=== PATIENT | female | born 1965 | race Caucasian/White ===

== ENCOUNTER 2018-01-24 07:59 | Day surgery (SDC) | payer OTHER ==
[~2018-01-24 07:59] MED LIST: CYCL10 PO; GLIP10ER PO; IBUP800 PO; JANUMET XR 1001 EACH PO; Norco 5-325 Ta1 EACH PO; ZESTORETIC 20-251 EA
== END 2018-01-24 23:02 | disposition home or self-care (01) ==
LOC: WOUND 07:59
DX: L97.222 Non-pressure chronic ulcer of left calf with fat layer exposed (principal); E11.65 Type 2 diabetes mellitus with hyperglycemia; I10 Essential (primary) hypertension
CPT/HCPCS: 87070; 87075; 87077; 87186; 87205; G0463

== ENCOUNTER 2018-03-13 01:39 | Day surgery (SDC) | payer OTHER | END 2018-03-13 22:42 | disposition home or self-care (01) | LOC: WOUND 01:39 | DX: L97.222 Non-pressure chronic ulcer of left calf with fat layer exposed (principal); E11.65 Type 2 diabetes mellitus with hyperglycemia; I10 Essential (primary) hypertension ==

== ENCOUNTER 2018-03-27 08:00 | Day surgery (SDC) | payer OTHER | END 2018-03-27 22:39 | disposition home or self-care (01) | LOC: WOUND 08:00 | DX: L97.222 Non-pressure chronic ulcer of left calf with fat layer exposed (principal); E11.65 Type 2 diabetes mellitus with hyperglycemia; I10 Essential (primary) hypertension | CPT/HCPCS: G0463 ==

== ENCOUNTER 2018-04-03 07:50 | Day surgery (SDC) | payer OTHER | END 2018-04-03 22:42 | disposition home or self-care (01) | LOC: WOUND 07:50 | DX: L97.222 Non-pressure chronic ulcer of left calf with fat layer exposed (principal); E11.65 Type 2 diabetes mellitus with hyperglycemia; I10 Essential (primary) hypertension | CPT/HCPCS: G0463 ==

== ENCOUNTER 2018-04-10 07:54 | Day surgery (SDC) | payer OTHER | END 2018-04-10 23:09 | disposition home or self-care (01) | LOC: WOUND 07:54 | DX: L97.222 Non-pressure chronic ulcer of left calf with fat layer exposed (principal); E11.65 Type 2 diabetes mellitus with hyperglycemia; I10 Essential (primary) hypertension | CPT/HCPCS: G0463 ==

== ENCOUNTER 2018-04-17 08:00 | Day surgery (SDC) | payer OTHER | END 2018-04-17 22:48 | disposition home or self-care (01) | LOC: WOUND 08:00 | DX: Z48.00 Encounter for change or removal of nonsurgical wound dressing (principal); E11.622 Type 2 diabetes mellitus with other skin ulcer; E11.65 Type 2 diabetes mellitus with hyperglycemia; L97.222 Non-pressure chronic ulcer of left calf with fat layer exposed; I10 Essential (primary) hypertension | CPT/HCPCS: G0463 ==

== ENCOUNTER 2018-04-24 07:50 | Day surgery (SDC) | payer OTHER | END 2018-04-24 23:01 | disposition home or self-care (01) | LOC: WOUND 07:50 | DX: L97.222 Non-pressure chronic ulcer of left calf with fat layer exposed (principal); E11.65 Type 2 diabetes mellitus with hyperglycemia; I10 Essential (primary) hypertension; Z79.84 Long term (current) use of oral hypoglycemic drugs ==

== ENCOUNTER 2018-05-01 08:01 | Day surgery (SDC) | payer OTHER | END 2018-05-01 22:45 | disposition home or self-care (01) | LOC: WOUND 08:01 | DX: E11.622 Type 2 diabetes mellitus with other skin ulcer (principal); L97.222 Non-pressure chronic ulcer of left calf with fat layer exposed; E11.65 Type 2 diabetes mellitus with hyperglycemia; I10 Essential (primary) hypertension; B95.61 Methicillin susceptible Staphylococcus aureus infection as the cause of diseases classified elsewhere; B95.1 Streptococcus, group B, as the cause of diseases classified elsewhere | CPT/HCPCS: G0463 ==

== ENCOUNTER 2018-05-08 08:03 | Day surgery (SDC) | payer OTHER | END 2018-05-08 22:44 | disposition home or self-care (01) | LOC: WOUND 08:03 | DX: E11.622 Type 2 diabetes mellitus with other skin ulcer (principal); L97.222 Non-pressure chronic ulcer of left calf with fat layer exposed; E11.65 Type 2 diabetes mellitus with hyperglycemia; I10 Essential (primary) hypertension; E11.51 Type 2 diabetes mellitus with diabetic peripheral angiopathy without gangrene | CPT/HCPCS: G0463 ==

== ENCOUNTER 2018-05-15 00:25 | Day surgery (SDC) | payer OTHER | END 2018-05-15 23:02 | disposition home or self-care (01) | LOC: WOUND 00:25 | DX: E11.622 Type 2 diabetes mellitus with other skin ulcer (principal); L97.222 Non-pressure chronic ulcer of left calf with fat layer exposed; E11.65 Type 2 diabetes mellitus with hyperglycemia; I10 Essential (primary) hypertension ==

== ENCOUNTER 2018-06-05 00:25 | Day surgery (SDC) | payer OTHER | END 2018-06-05 22:53 | disposition home or self-care (01) | LOC: WOUND 00:25 | DX: L97.222 Non-pressure chronic ulcer of left calf with fat layer exposed (principal); E11.65 Type 2 diabetes mellitus with hyperglycemia; I10 Essential (primary) hypertension; Z79.84 Long term (current) use of oral hypoglycemic drugs | CPT/HCPCS: G0463 ==

== ENCOUNTER 2018-06-19 08:00 | Day surgery (SDC) | payer OTHER | END 2018-06-19 22:50 | disposition home or self-care (01) | LOC: WOUND 08:00 | DX: E11.622 Type 2 diabetes mellitus with other skin ulcer (principal); L97.222 Non-pressure chronic ulcer of left calf with fat layer exposed; E11.65 Type 2 diabetes mellitus with hyperglycemia; I10 Essential (primary) hypertension | CPT/HCPCS: G0463 ==

== ENCOUNTER 2018-07-03 00:15 | Day surgery (SDC) | payer OTHER | END 2018-07-03 22:50 | disposition home or self-care (01) | LOC: WOUND 00:15 | DX: E11.622 Type 2 diabetes mellitus with other skin ulcer (principal); L97.222 Non-pressure chronic ulcer of left calf with fat layer exposed; E11.65 Type 2 diabetes mellitus with hyperglycemia; I10 Essential (primary) hypertension | CPT/HCPCS: G0463 ==

== ENCOUNTER 2019-12-07 08:01 | Day surgery (SDC) | payer OTHER | END 2019-12-07 22:43 | disposition home or self-care (01) | LOC: WOUND 08:01 | DX: E11.622 Type 2 diabetes mellitus with other skin ulcer (principal); L97.812 Non-pressure chronic ulcer of other part of right lower leg with fat layer exposed; E11.59 Type 2 diabetes mellitus with other circulatory complications | CPT/HCPCS: G0463 ==

== ENCOUNTER 2019-12-17 01:12 | Day surgery (SDC) | payer OTHER | END 2019-12-17 23:21 | disposition home or self-care (01) | LOC: WOUND 01:12 | DX: E11.622 Type 2 diabetes mellitus with other skin ulcer (principal); L97.812 Non-pressure chronic ulcer of other part of right lower leg with fat layer exposed; E11.59 Type 2 diabetes mellitus with other circulatory complications ==

== ENCOUNTER 2019-12-21 00:48 | Day surgery (SDC) | payer OTHER | END 2019-12-21 12:00 | disposition home or self-care (01) | LOC: WOUND 00:48 | DX: E11.622 Type 2 diabetes mellitus with other skin ulcer (principal); E11.59 Type 2 diabetes mellitus with other circulatory complications; L97.815 Non-pressure chronic ulcer of other part of right lower leg with muscle involvement without evidence of necrosis; Z79.84 Long term (current) use of oral hypoglycemic drugs ==

== ENCOUNTER 2019-12-24 00:15 | Day surgery (SDC) | payer OTHER | END 2019-12-24 22:54 | disposition home or self-care (01) | LOC: WOUND 00:15 | DX: E11.622 Type 2 diabetes mellitus with other skin ulcer (principal); E11.59 Type 2 diabetes mellitus with other circulatory complications; L97.825 Non-pressure chronic ulcer of other part of left lower leg with muscle involvement without evidence of necrosis; Z79.84 Long term (current) use of oral hypoglycemic drugs | CPT/HCPCS: 87071; 87077; 87147; 87186; 87205 ==

== ENCOUNTER 2019-12-28 00:34 | Day surgery (SDC) | payer OTHER | END 2019-12-28 23:05 | disposition home or self-care (01) | LOC: WOUND 00:34 | DX: E11.622 Type 2 diabetes mellitus with other skin ulcer (principal); E11.59 Type 2 diabetes mellitus with other circulatory complications; L97.815 Non-pressure chronic ulcer of other part of right lower leg with muscle involvement without evidence of necrosis; Z79.84 Long term (current) use of oral hypoglycemic drugs ==

== ENCOUNTER 2020-01-04 02:00 | Day surgery (SDC) | payer OTHER | END 2020-01-04 22:39 | disposition home or self-care (01) | LOC: WOUND 02:00 | DX: E11.622 Type 2 diabetes mellitus with other skin ulcer (principal); E11.59 Type 2 diabetes mellitus with other circulatory complications; L97.815 Non-pressure chronic ulcer of other part of right lower leg with muscle involvement without evidence of necrosis; Z79.84 Long term (current) use of oral hypoglycemic drugs ==

== ENCOUNTER 2020-01-11 02:03 | Day surgery (SDC) | payer OTHER | END 2020-01-11 22:45 | disposition home or self-care (01) | LOC: WOUND 02:03 | DX: E11.622 Type 2 diabetes mellitus with other skin ulcer (principal); L97.813 Non-pressure chronic ulcer of other part of right lower leg with necrosis of muscle; E11.52 Type 2 diabetes mellitus with diabetic peripheral angiopathy with gangrene; I96 Gangrene, not elsewhere classified; E11.59 Type 2 diabetes mellitus with other circulatory complications; J32.9 Chronic sinusitis, unspecified; D64.9 Anemia, unspecified; I10 Essential (primary) hypertension; J45.909 Unspecified asthma, uncomplicated; Z79.84 Long term (current) use of oral hypoglycemic drugs; Z79.899 Other long term (current) drug therapy; Z88.5 Allergy status to narcotic agent; Z91.040 Latex allergy status ==

== ENCOUNTER 2020-01-18 02:11 | Day surgery (SDC) | payer OTHER | END 2020-01-18 23:06 | disposition home or self-care (01) | LOC: WOUND 02:11 | DX: E11.622 Type 2 diabetes mellitus with other skin ulcer (principal); L97.813 Non-pressure chronic ulcer of other part of right lower leg with necrosis of muscle; E11.52 Type 2 diabetes mellitus with diabetic peripheral angiopathy with gangrene; I96 Gangrene, not elsewhere classified; E11.59 Type 2 diabetes mellitus with other circulatory complications; J32.9 Chronic sinusitis, unspecified; I10 Essential (primary) hypertension; D64.9 Anemia, unspecified; Z88.5 Allergy status to narcotic agent; Z79.84 Long term (current) use of oral hypoglycemic drugs; Z79.899 Other long term (current) drug therapy; J45.909 Unspecified asthma, uncomplicated; Z91.040 Latex allergy status ==

== ENCOUNTER 2020-01-24 00:19 | Day surgery (SDC) | payer OTHER | END 2020-01-24 23:19 | disposition home or self-care (01) | LOC: WOUND 00:19 | DX: E11.622 Type 2 diabetes mellitus with other skin ulcer (principal); L97.813 Non-pressure chronic ulcer of other part of right lower leg with necrosis of muscle; E11.52 Type 2 diabetes mellitus with diabetic peripheral angiopathy with gangrene; I96 Gangrene, not elsewhere classified; E11.59 Type 2 diabetes mellitus with other circulatory complications; J45.909 Unspecified asthma, uncomplicated; I10 Essential (primary) hypertension; J32.9 Chronic sinusitis, unspecified; D64.9 Anemia, unspecified; Z79.84 Long term (current) use of oral hypoglycemic drugs; Z79.899 Other long term (current) drug therapy; Z88.5 Allergy status to narcotic agent; Z91.040 Latex allergy status ==

== ENCOUNTER 2020-02-01 01:00 | Day surgery (SDC) | payer OTHER | END 2020-02-01 23:14 | disposition home or self-care (01) | LOC: WOUND 01:00 | DX: E11.622 Type 2 diabetes mellitus with other skin ulcer (principal); L97.812 Non-pressure chronic ulcer of other part of right lower leg with fat layer exposed; E11.52 Type 2 diabetes mellitus with diabetic peripheral angiopathy with gangrene; I96 Gangrene, not elsewhere classified; E11.59 Type 2 diabetes mellitus with other circulatory complications; I87.2 Venous insufficiency (chronic) (peripheral); J32.9 Chronic sinusitis, unspecified; D64.9 Anemia, unspecified; J45.909 Unspecified asthma, uncomplicated; I10 Essential (primary) hypertension; Z88.5 Allergy status to narcotic agent; Z79.84 Long term (current) use of oral hypoglycemic drugs; Z79.899 Other long term (current) drug therapy ==

== ENCOUNTER 2020-02-08 00:10 | Day surgery (SDC) | payer OTHER | END 2020-02-08 22:55 | disposition home or self-care (01) | LOC: WOUND 00:10 | DX: E11.622 Type 2 diabetes mellitus with other skin ulcer (principal); L97.813 Non-pressure chronic ulcer of other part of right lower leg with necrosis of muscle; E11.52 Type 2 diabetes mellitus with diabetic peripheral angiopathy with gangrene; E11.628 Type 2 diabetes mellitus with other skin complications; L03.115 Cellulitis of right lower limb; I96 Gangrene, not elsewhere classified; E11.59 Type 2 diabetes mellitus with other circulatory complications; J32.9 Chronic sinusitis, unspecified; D64.9 Anemia, unspecified; I10 Essential (primary) hypertension; J45.909 Unspecified asthma, uncomplicated; Z88.5 Allergy status to narcotic agent; Z91.040 Latex allergy status; Z79.84 Long term (current) use of oral hypoglycemic drugs; Z79.899 Other long term (current) drug therapy ==

== ENCOUNTER 2020-02-15 00:51 | Day surgery (SDC) | payer OTHER | END 2020-02-15 23:59 | disposition home or self-care (01) | LOC: WOUND 00:51 | DX: E11.622 Type 2 diabetes mellitus with other skin ulcer (principal); L97.812 Non-pressure chronic ulcer of other part of right lower leg with fat layer exposed; E11.628 Type 2 diabetes mellitus with other skin complications; L03.115 Cellulitis of right lower limb; E11.52 Type 2 diabetes mellitus with diabetic peripheral angiopathy with gangrene; I96 Gangrene, not elsewhere classified; E11.59 Type 2 diabetes mellitus with other circulatory complications; J32.9 Chronic sinusitis, unspecified; D64.9 Anemia, unspecified; J45.909 Unspecified asthma, uncomplicated; I10 Essential (primary) hypertension; Z88.5 Allergy status to narcotic agent; Z79.84 Long term (current) use of oral hypoglycemic drugs; Z79.899 Other long term (current) drug therapy ==

== ENCOUNTER 2020-02-25 01:35 | Day surgery (SDC) | payer OTHER | END 2020-02-25 22:51 | disposition home or self-care (01) | LOC: WOUND 01:35 | DX: E11.622 Type 2 diabetes mellitus with other skin ulcer (principal); L03.115 Cellulitis of right lower limb; L97.812 Non-pressure chronic ulcer of other part of right lower leg with fat layer exposed; E11.59 Type 2 diabetes mellitus with other circulatory complications; Z79.84 Long term (current) use of oral hypoglycemic drugs ==

== ENCOUNTER 2020-03-25 00:35 | Day surgery (SDC) | payer OTHER | END 2020-03-25 22:57 | disposition home or self-care (01) | LOC: WOUND 00:35 | DX: E11.622 Type 2 diabetes mellitus with other skin ulcer (principal); L97.813 Non-pressure chronic ulcer of other part of right lower leg with necrosis of muscle; E11.628 Type 2 diabetes mellitus with other skin complications; L03.115 Cellulitis of right lower limb; E11.52 Type 2 diabetes mellitus with diabetic peripheral angiopathy with gangrene; I96 Gangrene, not elsewhere classified; E11.59 Type 2 diabetes mellitus with other circulatory complications; D64.9 Anemia, unspecified; J45.909 Unspecified asthma, uncomplicated; I10 Essential (primary) hypertension; Z88.5 Allergy status to narcotic agent; Z91.040 Latex allergy status; Z79.84 Long term (current) use of oral hypoglycemic drugs; Z79.899 Other long term (current) drug therapy ==

== ENCOUNTER 2020-04-04 01:48 | Day surgery (SDC) | payer OTHER, SELFPAY | END 2020-04-04 23:25 | disposition home or self-care (01) | LOC: WOUND 01:48 | DX: E11.622 Type 2 diabetes mellitus with other skin ulcer (principal); L97.815 Non-pressure chronic ulcer of other part of right lower leg with muscle involvement without evidence of necrosis; E11.65 Type 2 diabetes mellitus with hyperglycemia; E11.59 Type 2 diabetes mellitus with other circulatory complications; D72.829 Elevated white blood cell count, unspecified | CPT/HCPCS: A9270 ==

== ENCOUNTER 2020-04-11 02:03 | Day surgery (SDC) | payer OTHER, SELFPAY | END 2020-04-11 23:55 | disposition home or self-care (01) | LOC: WOUND 02:03 | DX: E11.622 Type 2 diabetes mellitus with other skin ulcer (principal); L97.813 Non-pressure chronic ulcer of other part of right lower leg with necrosis of muscle; E11.52 Type 2 diabetes mellitus with diabetic peripheral angiopathy with gangrene; I96 Gangrene, not elsewhere classified; D64.9 Anemia, unspecified; J45.909 Unspecified asthma, uncomplicated; I10 Essential (primary) hypertension; E11.59 Type 2 diabetes mellitus with other circulatory complications; E11.65 Type 2 diabetes mellitus with hyperglycemia; D72.829 Elevated white blood cell count, unspecified; Z88.5 Allergy status to narcotic agent; Z79.84 Long term (current) use of oral hypoglycemic drugs; Z79.899 Other long term (current) drug therapy | CPT/HCPCS: 87070; 87075; 87077; 87186; 87205; A9270 ==

== ENCOUNTER 2020-04-18 00:32 | Day surgery (SDC) | payer OTHER, SELFPAY | END 2020-04-18 22:46 | disposition home or self-care (01) | LOC: WOUND 00:32 | DX: E11.622 Type 2 diabetes mellitus with other skin ulcer (principal); L97.812 Non-pressure chronic ulcer of other part of right lower leg with fat layer exposed; E11.65 Type 2 diabetes mellitus with hyperglycemia; E11.59 Type 2 diabetes mellitus with other circulatory complications; Z79.899 Other long term (current) drug therapy | CPT/HCPCS: A9270 ==

== ENCOUNTER 2020-04-25 00:40 | Day surgery (SDC) | payer OTHER, SELFPAY | END 2020-04-25 22:57 | disposition home or self-care (01) | LOC: WOUND 00:40 | DX: E11.622 Type 2 diabetes mellitus with other skin ulcer (principal); L97.812 Non-pressure chronic ulcer of other part of right lower leg with fat layer exposed; E11.65 Type 2 diabetes mellitus with hyperglycemia; E11.59 Type 2 diabetes mellitus with other circulatory complications | CPT/HCPCS: A9270 ==

== ENCOUNTER 2020-05-02 02:19 | Day surgery (SDC) | payer OTHER, SELFPAY | END 2020-05-02 23:45 | disposition home or self-care (01) | LOC: WOUND 02:19 | DX: E11.622 Type 2 diabetes mellitus with other skin ulcer (principal); L97.815 Non-pressure chronic ulcer of other part of right lower leg with muscle involvement without evidence of necrosis; E11.65 Type 2 diabetes mellitus with hyperglycemia; E11.59 Type 2 diabetes mellitus with other circulatory complications | CPT/HCPCS: A9270 ==

== ENCOUNTER 2020-05-16 00:52 | Day surgery (SDC) | payer OTHER, SELFPAY | END 2020-05-16 23:50 | disposition home or self-care (01) | LOC: WOUND 00:52 | DX: E11.622 Type 2 diabetes mellitus with other skin ulcer (principal); L97.815 Non-pressure chronic ulcer of other part of right lower leg with muscle involvement without evidence of necrosis; E11.65 Type 2 diabetes mellitus with hyperglycemia; E11.59 Type 2 diabetes mellitus with other circulatory complications | CPT/HCPCS: A9270 ==

== ENCOUNTER 2020-06-06 01:00 | Day surgery (SDC) | payer OTHER, SELFPAY | END 2020-06-06 23:08 | disposition home or self-care (01) | LOC: WOUND 01:00 | DX: E11.622 Type 2 diabetes mellitus with other skin ulcer (principal); L97.815 Non-pressure chronic ulcer of other part of right lower leg with muscle involvement without evidence of necrosis; L97.812 Non-pressure chronic ulcer of other part of right lower leg with fat layer exposed; E11.65 Type 2 diabetes mellitus with hyperglycemia; E11.59 Type 2 diabetes mellitus with other circulatory complications; Z86.14 Personal history of Methicillin resistant Staphylococcus aureus infection | CPT/HCPCS: A9270 ==

== ENCOUNTER 2020-06-18 00:15 | Day surgery (SDC) | payer OTHER | END 2020-06-18 22:40 | disposition home or self-care (01) | LOC: WOUND 00:15 | DX: E11.622 Type 2 diabetes mellitus with other skin ulcer (principal); L97.812 Non-pressure chronic ulcer of other part of right lower leg with fat layer exposed; E11.65 Type 2 diabetes mellitus with hyperglycemia; E11.59 Type 2 diabetes mellitus with other circulatory complications | CPT/HCPCS: A9270 ==

== ENCOUNTER 2020-07-04 00:39 | Day surgery (SDC) | payer OTHER | END 2020-07-04 22:59 | disposition home or self-care (01) | LOC: WOUND 00:39 | DX: E11.622 Type 2 diabetes mellitus with other skin ulcer (principal); L97.812 Non-pressure chronic ulcer of other part of right lower leg with fat layer exposed; E11.65 Type 2 diabetes mellitus with hyperglycemia; E11.59 Type 2 diabetes mellitus with other circulatory complications | CPT/HCPCS: A9270 ==

== ENCOUNTER 2020-07-18 00:55 | Day surgery (SDC) | payer OTHER | END 2020-07-18 23:27 | disposition home or self-care (01) | LOC: WOUND 00:55 | DX: E11.622 Type 2 diabetes mellitus with other skin ulcer (principal); L97.812 Non-pressure chronic ulcer of other part of right lower leg with fat layer exposed; E11.65 Type 2 diabetes mellitus with hyperglycemia; E11.59 Type 2 diabetes mellitus with other circulatory complications | CPT/HCPCS: A9270 ==

== ENCOUNTER 2020-08-01 02:11 | Day surgery (SDC) | payer OTHER | END 2020-08-01 23:10 | disposition home or self-care (01) | LOC: WOUND 02:11 | DX: E11.622 Type 2 diabetes mellitus with other skin ulcer (principal); L97.812 Non-pressure chronic ulcer of other part of right lower leg with fat layer exposed; E11.65 Type 2 diabetes mellitus with hyperglycemia; E11.59 Type 2 diabetes mellitus with other circulatory complications | CPT/HCPCS: A9270 ==

== ENCOUNTER 2020-08-15 00:47 | Day surgery (SDC) | payer OTHER | END 2020-08-15 22:45 | disposition home or self-care (01) | LOC: WOUND 00:47 | DX: E11.622 Type 2 diabetes mellitus with other skin ulcer (principal); L97.812 Non-pressure chronic ulcer of other part of right lower leg with fat layer exposed; E11.65 Type 2 diabetes mellitus with hyperglycemia; E11.59 Type 2 diabetes mellitus with other circulatory complications | CPT/HCPCS: A9270 ==

== ENCOUNTER 2020-09-05 04:24 | Day surgery (SDC) | payer OTHER | END 2020-09-06 00:35 | disposition home or self-care (01) | LOC: WOUND 04:24 | DX: E11.622 Type 2 diabetes mellitus with other skin ulcer (principal); L97.812 Non-pressure chronic ulcer of other part of right lower leg with fat layer exposed; E11.65 Type 2 diabetes mellitus with hyperglycemia; E11.59 Type 2 diabetes mellitus with other circulatory complications | CPT/HCPCS: A9270 ==

== ENCOUNTER 2020-09-19 02:01 | Day surgery (SDC) | payer OTHER | END 2020-09-19 04:27 | disposition home or self-care (01) | LOC: WOUND 02:01 | DX: E11.622 Type 2 diabetes mellitus with other skin ulcer (principal); L97.812 Non-pressure chronic ulcer of other part of right lower leg with fat layer exposed; E11.65 Type 2 diabetes mellitus with hyperglycemia; E11.59 Type 2 diabetes mellitus with other circulatory complications | CPT/HCPCS: A9270 ==

== ENCOUNTER 2020-10-01 01:21 | Day surgery (SDC) | payer OTHER | END 2020-10-01 23:48 | disposition home or self-care (01) | LOC: WOUND 01:21 | DX: E11.622 Type 2 diabetes mellitus with other skin ulcer (principal); L97.812 Non-pressure chronic ulcer of other part of right lower leg with fat layer exposed; E11.65 Type 2 diabetes mellitus with hyperglycemia; E11.59 Type 2 diabetes mellitus with other circulatory complications | CPT/HCPCS: A9270 ==

== ENCOUNTER 2020-10-17 01:53 | Day surgery (SDC) | payer OTHER | END 2020-10-17 04:33 | disposition home or self-care (01) | LOC: WOUND 01:53 | DX: E11.622 Type 2 diabetes mellitus with other skin ulcer (principal); L97.812 Non-pressure chronic ulcer of other part of right lower leg with fat layer exposed; E11.65 Type 2 diabetes mellitus with hyperglycemia; E11.59 Type 2 diabetes mellitus with other circulatory complications | CPT/HCPCS: A9270; G0463 ==

== ENCOUNTER 2020-10-31 00:37 | Day surgery (SDC) | payer OTHER | END 2020-10-31 23:00 | disposition home or self-care (01) | LOC: WOUND 00:37 | DX: E11.622 Type 2 diabetes mellitus with other skin ulcer (principal); L97.812 Non-pressure chronic ulcer of other part of right lower leg with fat layer exposed; E11.65 Type 2 diabetes mellitus with hyperglycemia; E11.59 Type 2 diabetes mellitus with other circulatory complications | CPT/HCPCS: A9270 ==

== ENCOUNTER 2020-11-21 02:27 | Day surgery (SDC) | payer OTHER | END 2020-11-21 23:30 | disposition home or self-care (01) | LOC: WOUND 02:27 | DX: E11.622 Type 2 diabetes mellitus with other skin ulcer (principal); L97.812 Non-pressure chronic ulcer of other part of right lower leg with fat layer exposed; E11.65 Type 2 diabetes mellitus with hyperglycemia; E11.59 Type 2 diabetes mellitus with other circulatory complications; R60.0 Localized edema | CPT/HCPCS: A9270 ==

== ENCOUNTER 2020-12-05 01:09 | Day surgery (SDC) | payer OTHER | END 2020-12-05 23:13 | disposition home or self-care (01) | LOC: WOUND 01:09 | DX: E11.622 Type 2 diabetes mellitus with other skin ulcer (principal); L97.812 Non-pressure chronic ulcer of other part of right lower leg with fat layer exposed; E11.65 Type 2 diabetes mellitus with hyperglycemia; E11.59 Type 2 diabetes mellitus with other circulatory complications; Z86.14 Personal history of Methicillin resistant Staphylococcus aureus infection | CPT/HCPCS: G0463 ==

== ENCOUNTER 2024-08-09 06:10 | Day surgery (SDC) | payer OTHER ==
[~2024-08-09] VITALS: Ht 152.4 cm; Wt 82.5 kg
[~2024-08-09 06:10] MED LIST changes: +Lactated Ringer's 1,000 ML IV ONE
[2024-08-09] MEDS ORDERED: CeFAZolin Sodium 2,000 MG VIAL ONE (06:29)
[2024-08-09] MEDS ORDERED: Lactated Ringer's 1,000 ML IV ONE (07:18)
[2024-08-09] MEDS ORDERED: JARDIANCE10 MG (07:23)
[2024-08-09] MEDS ORDERED: Cyproheptadine H4 MG (07:24)
[2024-08-09] MEDS ORDERED: METF500 (07:24)
[2024-08-09] MEDS ORDERED: propofoL 20 ML IV ONE (07:25)
[2024-08-09] MEDS ORDERED: Midazolam HCl 1MG / ML 2ML Vial ONE (07:25)
[2024-08-09] MEDS ORDERED: FentaNYL Citrate 50 MCG/ML 2 ML Injection ONE (07:25)
[2024-08-09] MEDS ORDERED: Ondansetron HCl 2 MG / ML 2ML Vial ONE ×2 (07:41→08:50)
[2024-08-09] MEDS ORDERED: Dexamethasone Sod Phos 10 MG/ML 1ML VIAL ONE (07:41)
[2024-08-09] MEDS ORDERED: Ketorolac Tromethamine 30mg Vial ONE (07:42)
[2024-08-09] MEDS ORDERED: Phenylephrine HCl 100 MCG/ML-NS 10MLSYR (1MG/10ML) ONE (07:44)
[2024-08-09] MEDS ORDERED: Lidocaine HCl 1% 20 ML MDV INJ ONE (07:52)
[2024-08-09] MEDS ORDERED: Bupivacaine 0.5% HCl 5 MG/ML 30MLVIAL INJ ONE (07:52)
--- NOTE | 2024-08-09 08:58 | NUR ---
08/09/24 0858 Castilol,Tacos CASTELLANOS FROM IMAGING CALL TO CONFIRM DR CRUZ REVIEWED X RAY AND CONFIRMED MEDIPORT PLACEMENT.
[2024-08-09 09:45] VITALS: BP 146/94
== END 2024-08-09 09:44 | disposition home or self-care (01) ==
LOC: ORSCSDS 06:10
PROVIDERS: Surgery
PROC: 0JH63WZ Insertion of Totally Implantable Vascular Access Device into Chest Subcutaneous Tissue and Fascia, Percutaneous Approach (ICD-10-PCS; principal; 2024-08-09 07:30)
PROC: B543ZZA Ultrasonography of Right Jugular Veins, Guidance (ICD-10-PCS; principal; 2024-08-09 07:30)
PROC: 05HM33Z Insertion of Infusion Device into Right Internal Jugular Vein, Percutaneous Approach (ICD-10-PCS; principal; 2024-08-09 07:30)
DX: C50.412 Malignant neoplasm of upper-outer quadrant of left female breast (principal); J45.909 Unspecified asthma, uncomplicated; E11.9 Type 2 diabetes mellitus without complications; Z17.0 Estrogen receptor positive status [ER+]; Z17.21 Progesterone receptor positive status; Z17.32 Human epidermal growth factor receptor 2 negative status; I10 Essential (primary) hypertension; Z79.899 Other long term (current) drug therapy; Z79.84 Long term (current) use of oral hypoglycemic drugs
CPT/HCPCS: 77001; 82947; 93005; 93010; C1788; J0690; J1100; J1642; J1885; J2250; J2371; J2405; J2704; J3010; J7120

== ENCOUNTER 2025-01-21 09:22 | Day surgery (SDC) | payer OTHER ==
[~2025-01-21] VITALS: Ht 149.9 cm; Wt 80.5 kg
[~2025-01-21 09:22] MED LIST changes: +Cyproheptadine H4 MG; +JARDIANCE10 MG; -Lactated Ringer's 1,000 ML IV ONE; +METF500
[2025-01-21] MEDS ORDERED: CeFAZolin Sodium 2,000 MG VIAL ONE (10:25)
[2025-01-21] MEDS ORDERED: FentaNYL Citrate 50 MCG/ML 2 ML Injection ONE (10:25)
[2025-01-21] MEDS ORDERED: LOSA25 PO (10:33)
[2025-01-21] MEDS ORDERED: MELOXICAM5 MG PO (10:38)
--- NOTE | 2025-01-21 10:49 | NUR ---
01/21/25 1049 SANTY VILLALTA PT TRANSPORTED VIA BY [facility] TO [facility].
[2025-01-21] MEDS ORDERED: Ondansetron HCl 2 MG / ML 2ML Vial ONE ×2 (11:14→14:35)
[2025-01-21] MEDS ORDERED: Midazolam HCl 1MG / ML 2ML Vial ONE (11:17)
[2025-01-21] MEDS ORDERED: Bupivacaine 0.5% HCl 5 MG/ML 30MLVIAL INJ ONE (11:30)
[2025-01-21] MEDS ORDERED: Phenylephrine HCl 100 MCG/ML-NS 10MLSYR (1MG/10ML) ONE (11:42)
[2025-01-21] MEDS ORDERED: Dexamethasone Sod Phos 10 MG/ML 1ML VIAL ONE (11:46)
[2025-01-21] MEDS ORDERED: ePHEDrine Sulfate 50 MG/ML 1ML Injection ONE (11:52)
--- NOTE | 2025-01-21 12:39 | NUR ---
01/21/25 1239 Radha Soliman 1238-PATHOLOGY CALLED, SPOKE DIRECTLY TO SURGEON, POSITIVE NODE, WILL PROCEED WITH LYMPH NODE DISSECTION.
[2025-01-21 14:19] VITALS: BP 131/76
--- NOTE | 2025-01-21 15:11 | NUR ---
01/21/25 1511 LORAINE BONILLA REPORTS 5/10 PAIN AT THIS TIME, STATES PAIN IS AT MEDIPORT SITE. PT HAVING SNACK AT THIS TIME. PLAN FOR PAIN PILL PER ORDERS. PT REPORTS NAUSEA IS IMPROVED.
[2025-01-21] MEDS ORDERED: HYDROcodone 5-APAP 325 TAB ONE (15:12)
== END 2025-01-21 15:54 | disposition home or self-care (01) ==
LOC: ORSCSDS 09:22 → NM 11:00 → ORSCSDS 11:00
PROVIDERS: Surgery
PROC: 07B60ZX Excision of Left Axillary Lymphatic, Open Approach, Diagnostic (ICD-10-PCS; principal; 2025-01-21 11:30)
PROC: 0HBU0ZZ Excision of Left Breast, Open Approach (ICD-10-PCS; principal; 2025-01-21 11:30)
PROC: 0JPT0WZ Removal of Totally Implantable Vascular Access Device from Trunk Subcutaneous Tissue and Fascia, Open Approach (ICD-10-PCS; principal; 2025-01-21 11:30)
PROC: 07T60ZZ Resection of Left Axillary Lymphatic, Open Approach (ICD-10-PCS; principal; 2025-01-21 11:30)
DX: C50.412 Malignant neoplasm of upper-outer quadrant of left female breast (principal); C77.3 Secondary and unspecified malignant neoplasm of axilla and upper limb lymph nodes; Z45.2 Encounter for adjustment and management of vascular access device; Z17.0 Estrogen receptor positive status [ER+]; Z17.21 Progesterone receptor positive status; Z17.32 Human epidermal growth factor receptor 2 negative status; I10 Essential (primary) hypertension; J45.909 Unspecified asthma, uncomplicated; E11.9 Type 2 diabetes mellitus without complications; Z79.84 Long term (current) use of oral hypoglycemic drugs; Z79.899 Other long term (current) drug therapy
CPT/HCPCS: 38792; 82947; 88305; 88307; 88331; A9270; A9520; J0690; J1100; J2250; J2371; J2405; J2704; J3010; J7120; Q9968

== ENCOUNTER 2025-02-13 09:46 | Day surgery (SDC) | payer OTHER ==
[2025-02-13] VITALS (7 sets, daily range): BP systolic 103–126; BP diastolic 66–84
[~2025-02-13] VITALS: Ht 152.4 cm; Wt 80.2 kg
[~2025-02-13 09:46] MED LIST changes: +CLIN150 PO; +Crestor40 MG PO; +LOSA25 PO; +MELOXICAM5 MG PO; -METF500; +METF500 PO; +PREG75 PO
--- NOTE | 2025-02-13 12:07 | NUR ---
Ambulatory in Day Surgery. History, Chart, Medications and Allergies reviewed before start of procedure. Lungs clear T/O to Auscultation. Patient confirms NPO status and agrees with scheduled surgery. Pre-Op teaching done. Pt verbalizes understanding. Patient States Post-Procedure ride home has been arranged.
[2025-02-13] MEDS ORDERED: Bupivacaine 0.5% HCl 5 MG/ML 30MLVIAL ONE (12:42)
[2025-02-13] MEDS ORDERED: Sugammadex Sodium 200 MG/2ML SDV (100 MG/ML) ONE ×2 (12:59→13:13)
--- NOTE | 2025-02-13 14:22 | NUR ---
Patient States Post-Procedure ride home has been arranged. Discharged via wheelchair to private car for ride home. Discharge instructions reviewed with patient. Patient verbalizes understanding. Copy given to patient to take home.
== END 2025-02-13 23:00 | disposition home or self-care (01) ==
LOC: ORSCMMR 09:46
PROVIDERS: Surgery
PROC: 0X950ZX Drainage of Left Axilla, Open Approach, Diagnostic (ICD-10-PCS; principal; 2025-02-13 12:00)
DX: L02.419 Cutaneous abscess of limb, unspecified (principal); E11.9 Type 2 diabetes mellitus without complications; A49.02 Methicillin resistant Staphylococcus aureus infection, unspecified site; C50.412 Malignant neoplasm of upper-outer quadrant of left female breast; Z17.0 Estrogen receptor positive status [ER+]; C77.3 Secondary and unspecified malignant neoplasm of axilla and upper limb lymph nodes; J45.909 Unspecified asthma, uncomplicated; I10 Essential (primary) hypertension; E66.9 Obesity, unspecified; Z68.34 Body mass index [BMI] 34.0-34.9, adult; Z79.84 Long term (current) use of oral hypoglycemic drugs; Z79.899 Other long term (current) drug therapy
CPT/HCPCS: 82947; J2704; J7120